=== PATIENT | male | born 1980 | race Caucasian/White ===

== ENCOUNTER 2017-12-09 20:21 | Emergency (ER) | payer OTHER ==
[2017-12-09 20:38] VITALS: BP 135/82
--- NOTE | 2017-12-09 21:17 | UC ---
General HPI - HPI Summary HPI Summary: Patient states that he started to feel ill last Thursday with some cough and chest congestion .by Thursday, he had developed some significant diarrhea that that lasted for only a day at the same time time he noted some backaches. Today , he reports developing some sharp abdominal pain with his first meal of the day ; however, that has since resolved. He also developed some nausea which is ongoing. He has no current vomiting or diarrhea. On review of systems he admits to ongoing cough, chills and short of breath. He denies any history of asthma as well as any history of inflammatory bowel disease, travel history or recent antibiotic use. - History of Current Complaint Chief Complaint: UCGI Stated Complaint: ABD ISSUES, NAUSEA Time Seen by Provider: 12/09/17 21:03 Hx Obtained From: Patient Onset/Duration: Gradual Onset Timing: Constant Pain Intensity: 6 Associated Signs & Symptoms: Positive: Cough, Diarrhea, Fever, Nausea, SOB, Wheezing - Allergy/Home Medications Allergies/Adverse Reactions: Allergies Allergy/AdvReac Type Severity Reaction Status Date / Time No Known Allergies Allergy Verified 12/09/17 20:39 Home Medications: Home Medications Aspirin/Acetaminophen/Caffeine [Excedrin Migraine Caplet] 1 each PO DAILY [History Confirmed 12/09/17] PMH/Surg Hx/FS Hx/Imm Hx - Additional Past Medical History Additional PMH: pneumonia - Surgical History Surgical History: None Surgery Procedure, Year, and Place: Tonsils 1986 arthroscopy left knee 2001 - Family History Known Family History: Positive: Hypertension - Social History Occupation: Employed Full-time Lives: With Family Alcohol Use: Occasionally Substance Use Type: Marijuana Substance Use Comment - Amount & Last Used: PT STATES HE NO LONGER USES MARIJUANA Smoking Status (MU): Current Every Day Smoker Type: Pipe Amount Used/How Often: DAILY Length of Time of Smoking/Using Tobacco: 18 YRS Have You Smoked in the Last Year: Yes - Immunization History Vaccination Up to Date: Yes Review of Systems Constitutional: Fever, Chills Skin: Negative Eyes: Negative ENT: Negative Respiratory: Shortness Of Breath, Cough Cardiovascular: Negative Gastrointestinal: Abdominal Pain, Diarrhea, Nausea Genitourinary: Negative Motor: Negative Neurovascular: Negative Musculoskeletal: Myalgia Neurological: Negative Psychological: Negative Is Patient Immunocompromised?: No All Other Systems Reviewed And Are Negative: Yes Physical Exam Triage Information Reviewed: Yes Appearance: Ill-Appearing - but non toxic Vital Signs: Initial Vital Signs Temp 98.3 F 12/09/17 20:35 Pulse 96 12/09/17 20:35 Resp 17 12/09/17 20:35 BP 135/82 12/09/17 20:35 Pulse Ox 96 12/09/17 20:35 Eyes: Positive: Conjunctiva Clear ENT: Positive: Pharynx normal, Nasal congestion, Nasal drainage - clear, TMs normal Neck: Positive: Supple, Nontender, No Lymphadenopathy Respiratory: Positive: No respiratory distress, Decreased breath sounds, Rhonchi , Wheezing Cardiovascular: Positive: RRR, No Murmur Abdomen Description: Positive: Nontender, No Organomegaly, Soft. Negative: CVA Tenderness (R), CVA Tenderness (L), Distended, Guarding Bowel Sounds: Positive: Present Musculoskeletal: Positive: ROM Intact Neurological: Positive: Alert Psychological: Positive: Age Appropriate Behavior Skin Exam: Normal Diagnostics - Radiology No standard instances Radiology Interpretation Completed By: ED Physician - wet read=NAD Re-Evaluation - Re-Evaluation First Eval Re-Evaluation Time: 21:58 Change: Improved - better aeration, less wheezing and less rhonchi. cough is loose and congested. pt feeling improved. Course/Dx - Course Course Of Treatment: pt is non toxic and not hypoxic. I saw no infitrate on CXR ; however, hx and PE suggests pneumonia this I will tx him presumptively for this. - Differential Dx - Multi-Symptom Provider Diagnoses: Community aquired pneumonia Discharge - Sign-Out/Discharge Documenting (check all that apply): Patient Departure - Discharge Plan Condition: Improved Disposition: HOME Prescriptions: Albuterol HFA INHALER* [Ventolin HFA Inhaler*] 2 puff INH Q6H #1 mdi DOXYcycline CAP(*) [DOXYcycline 100MG CAP(*)] 100 mg PO BID 10 Days #20 cap predniSONE TAB* [Deltasone 20 MG TAB*] 40 mg PO DAILY 3 Days #6 tab Patient Education Materials: Community Acquired Pneumonia (DC) Referrals: Ken Rudolph DO [Primary Care Provider] - 5 Days Additional Instructions: GO TO ER FOR ANY CHANGES OR WORSENING - Billing Disposition and Condition Condition: IMPROVED Disposition: Home Attestation Statement User Type: Provider - I was available for consult. This patient was seen by the MOODY. The patient was not presented to, seen by, or examined by me. -Deana
[2017-12-09] MEDS ORDERED: Albuterol 2.5 MG/3 ML NEB.SOL* (0.083%) INH ONE (21:18)
[2017-12-09] MEDS ORDERED: predniSONE TAB* 20 MG PO ONE (21:18)
[2017-12-09] MEDS ORDERED: DOXYcycline CAP(*) 100 MG PO ONE (21:32)
--- NOTE | 2017-12-10 07:07 | RAD ---
INDICATION: Cough and chills times one week COMPARISON: None TECHNIQUE: PA and lateral views of the chest were obtained. FINDINGS: The heart and mediastinum are normal in size and contour. The lungs are grossly clear. There is no evidence of large pleural effusion. Visualized bones are normal for the patient's age. There is no radiographic evidence of free air beneath the diaphragm IMPRESSION: No radiographic evidence of acute cardiopulmonary disease. R0
== END 2017-12-09 22:07 | disposition home or self-care (01) ==
LOC: UCCORT 20:21
DX: J18.9 Pneumonia, unspecified organism (principal)
CPT/HCPCS: 71046; 81003; 99212; A9270-GY; G0463; J7512

== ENCOUNTER 2019-03-07 19:29 | Emergency (ER) | payer OTHER ==
[2019-03-07 20:30] VITALS: BP 122/77
--- NOTE | 2019-03-07 20:37 | UC ---
Throat Pain/Nasal Rohit HPI - HPI Summary HPI Summary: Patient is a 38-year-old male presenting with nasal congestion, productive cough , chills, shortness of breath on exertion, and bilateral rib pain 1 week. States it started as cold symptoms and has gradually progressed. Denies shortness of breath at rest. Denies wheezing and difficulty breathing. Denies nausea, vomiting, diarrhea, and abdominal pain. States he tried Zicam which did not help. Patient is an every day smoker. - History of Current Complaint Chief Complaint: UCGeneralIllness Stated Complaint: CHEST CONGESTION, SINUS COMPLAINT Hx Obtained From: Patient Onset/Duration: Gradual Onset, Lasting Days Pain Intensity: 0 - Allergies/Home Medications Allergies/Adverse Reactions: Allergies Allergy/AdvReac Type Severity Reaction Status Date / Time No Known Allergies Allergy Verified 03/07/19 20:27 PMH/Surg Hx/FS Hx/Imm Hx - Surgical History Surgical History: Yes Surgery Procedure, Year, and Place: Tonsils 1986 arthroscopy left knee 2001 - Family History Known Family History: Positive: Hypertension, Non-Contributory - Social History Alcohol Use: Occasionally Substance Use Type: None Substance Use Comment - Amount & Last Used: PT STATES HE NO LONGER USES MARIJUANA Smoking Status (MU): Current Every Day Smoker Type: Pipe Amount Used/How Often: DAILY Length of Time of Smoking/Using Tobacco: 18 YRS Have You Smoked in the Last Year: Yes - Immunization History Vaccination Up to Date: Yes Review of Systems All Other Systems Reviewed And Are Negative: Yes Constitutional: Positive: Fever, Chills ENT: Positive: Sinus Congestion, Sinus Pain/Tenderness. Negative: Sore Throat, Ear Ache Respiratory: Positive: Shortness Of Breath, Cough Cardiovascular: Positive: Negative. Negative: Palpitations, Chest Pain Gastrointestinal: Negative: Abdominal Pain, Vomiting, Nausea Musculoskeletal: Positive: Negative Neurological: Positive: Headache Physical Exam Triage Information Reviewed: Yes Appearance: No Pain Distress, Well-Nourished, Ill-Appearing Vital Signs: Initial Vital Signs Temp 99.2 F 03/07/19 20:25 Pulse 82 03/07/19 20:25 Resp 15 03/07/19 20:25 BP 122/77 03/07/19 20:25 Pulse Ox 96 03/07/19 20:25 Vital Signs Reviewed: Yes Eyes: Positive: Conjunctiva Clear ENT: Positive: Hearing grossly normal, Pharynx normal, Nasal congestion, Nasal drainage - PND, TMs normal, Sinus tenderness - Maxillary, Uvula midline. Negative: Tonsillar swelling, Tonsillar exudate Neck exam: Normal Neck: Positive: Supple, Nontender, No Lymphadenopathy Respiratory: Positive: No respiratory distress, No accessory muscle use, Wheezing - Diffuse expiratory wheezing Cardiovascular Exam: Normal Cardiovascular: Positive: RRR Neurological: Positive: Alert Psychological: Positive: Age Appropriate Behavior Diagnostics - Radiology chest xray Radiology Interpretation Completed By: ED Physician Summary of Radiographic Findings: no acute process Throat Pain/Nasal Course/Dx - Course Course Of Treatment: Discussed negative initial read of chest xray and informed him that final report will be obtained tomorrow. I treated with augmentin for sinusitis. Patient received first dose here. Also prescribed albuterol inhaler for SOB and wheezing. Patient VS normal and in no respiratory distress. Instructed to follow up with PCP if symptoms persist. Instructed to go to the ED if symptoms worsen. Patient voiced understanding and agreed with the treatment plan. Dr. Helton also reviewed xrays and agreed with the treatment plan. - Differential Dx/Diagnosis Provider Diagnosis: Sinusitis, Exertional shortness of breath Discharge ED - Sign-Out/Discharge Documenting (check all that apply): Patient Departure All imaging exams completed and their final reports reviewed: No - Discharge Plan Condition: Stable Disposition: HOME Prescriptions: Albuterol HFA INHALER* [Ventolin HFA Inhaler*] 1 - 2 puff INH Q6H PRN #1 mdi PRN Reason: Sob/Wheezing Amoxicillin/Clavulanate TAB* [Augmentin TAB 875*] 875 mg PO BID #13 tab Fluticasone NASAL SPRAY 50MCG* [Flonase NASAL SPRAY 50MCG*] 2 spray BOTH NARES DAILY PRN #1 btl PRN Reason: Congestion Patient Education Materials: Sinusitis (ED) Referrals: Ken Rudolph DO [Primary Care Provider] - If Needed Additional Instructions: As discussed, your xrays were read by the provider who treated you tonight. The initial read was negative. A final report will be obtained tomorrow morning and you will be notified with any abnormalities. Take Augmentin for the treatment of your sinusitis. You received the first dose here at the urgent care. You may use Flonase nasal spray as directed for symptomatic relief. Use the albuterol inhaler as prescribed for shortness of breath and/or wheezing. You may take ibuprofen and tylenol as directed for pain and fever relief. Get plenty of rest and fluids. Refrain from smoking while your symptoms are present. Follow up with your primary care doctor if your symptoms do not resolve within 7 days. Go to the Emergency Room if your symptoms worsen. - Billing Disposition and Condition Condition: STABLE Disposition: Home
[2019-03-07] MEDS ORDERED: Amoxicillin/Clavulanate TAB* 875 MG PO ONE (21:28)
--- NOTE | 2019-03-08 12:55 | UC ---
- Progress Note Progress Note: Patient Name: CLEOPATRA PAEZ III Medical Record#: [id number] Ordering Physician: Nicole SIDDIQUI Acct.#: [id number] : 1980 Age: 38 Sex: M Location: [facility] Exam Date: 03/07/192042 ADM Status: DEP ER Order Information: CHEST PA & LAT 2 VWS Accession Number: [id number] CPT: 25604 INDICATION: Cough and shortness of breath. COMPARISON: Comparison is made with a prior study from December 09, 2017. TECHNIQUE: Dual-energy PA and lateral views of the chest were obtained. FINDINGS: The heart is within normal limits in size. Mediastinal and hilar contours appear within normal limits. The lungs are clear. No pleural effusion is seen. IMPRESSION: NO EVIDENCE FOR ACTIVE CARDIOPULMONARY DISEASE. R0 Preliminary Imaging Read R0 <Electronically signed by Leighton Ellison MD in OV> 03/08/19723 Dictated By: Leighton Ellison MD Dictated Date/Time: 03/08/19723 Transcribed Date/Time: 03/08/19723 Copy to: CC:Nicole SIDDIQUI; Ken Rudolph DO; Carrillo Helton MD Imaging - [facility] Imaging - [facility] [address] [place] [address] ph ([phone]) ph ([phone]) ph ([phone]) This report is only to be considered final once signed by the Provider(s) as displayed in the "<Electronically Signed by >" field (s). Absence of a signature indicates the report is in a draft status and still needs to be finalized. In the event this document was created by someone other than the signing Provider, the individual initiating the document will be listed in the "Entered by:" or "Dictated by:" klein. 1 of 1 Course/Dx - Diagnoses Provider Diagnoses: Sinusitis, Exertional shortness of breath Discharge ED - Sign-Out/Discharge Documenting (check all that apply): Patient Departure All imaging exams completed and their final reports reviewed: Yes - Discharge Plan Condition: Stable Disposition: HOME Prescriptions: Albuterol HFA INHALER* [Ventolin HFA Inhaler*] 1 - 2 puff INH Q6H PRN #1 mdi PRN Reason: Sob/Wheezing Amoxicillin/Clavulanate TAB* [Augmentin TAB 875*] 875 mg PO BID #13 tab Fluticasone NASAL SPRAY 50MCG* [Flonase NASAL SPRAY 50MCG*] 2 spray BOTH NARES DAILY PRN #1 btl PRN Reason: Congestion Patient Education Materials: Sinusitis (ED) Referrals: Ken Rudolph DO [Primary Care Provider] - If Needed Additional Instructions: As discussed, your xrays were read by the provider who treated you tonight. The initial read was negative. A final report will be obtained tomorrow morning and you will be notified with any abnormalities. Take Augmentin for the treatment of your sinusitis. You received the first dose here at the urgent care. You may use Flonase nasal spray as directed for symptomatic relief. Use the albuterol inhaler as prescribed for shortness of breath and/or wheezing. You may take ibuprofen and tylenol as directed for pain and fever relief. Get plenty of rest and fluids. Refrain from smoking while your symptoms are present. Follow up with your primary care doctor if your symptoms do not resolve within 7 days. Go to the Emergency Room if your symptoms worsen. - Billing Disposition and Condition Condition: STABLE Disposition: Home
== END 2019-03-07 21:45 | disposition home or self-care (01) ==
LOC: UCCORT 19:29
DX: J32.9 Chronic sinusitis, unspecified (principal); R05 Cough; R06.02 Shortness of breath
CPT/HCPCS: 71046; 99212; A9270-GY; G0463